=== PATIENT | male | born 1965 | race Caucasian/White ===

== ENCOUNTER 2019-01-08 14:16 | Emergency (ER) | payer MEDICAID ==
[2019-01-08] MEDS ORDERED: Sodium Chloride 0.9% 1,000 ML IV ONE (14:26)
[2019-01-08] MEDS ORDERED: Ketorolac 30 MG/ML SDV IVPUSH ONE (14:26)
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
[2019-01-08 15:29] LABS: CHLORIDE,CL 107 mmol/L (98-107); SODIUM,NA 140 mmol/L (136-148)
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
== END 2019-01-08 17:15 | disposition home or self-care (01) ==
LOC: MW.ED 14:16
DX: S49.91XA Unspecified injury of right shoulder and upper arm, initial encounter (principal); S39.92XA Unspecified injury of lower back, initial encounter; D69.6 Thrombocytopenia, unspecified; Z88.0 Allergy status to penicillin; E87.6 Hypokalemia; R73.9 Hyperglycemia, unspecified; V49.9XXA Car occupant (driver) (passenger) injured in unspecified traffic accident, initial encounter
CPT/HCPCS: 36415; 72070; 72100; 73030; 80053; 81003; 85025; 96361; 96374; 96375; 99284; J1885; J2360; J7040